=== PATIENT | female | born 1985 | race African-American/Black ===

== ENCOUNTER 2025-04-22 04:49 | Emergency (ER) | payer MEDICAID ==
[~2025-04-22] VITALS: Ht 162.6 cm; Wt 77.0 kg
[2025-04-22 05:07] VITALS: O2SAT 100
[2025-04-22] MEDS: KETOROLAC 30MG/ML VIAL IM ONE (05:40)
[2025-04-22] MEDS: CYCLOBENZAPRINE 10MG TABLET PO ONE (05:40)
[2025-04-22] MEDS ORDERED: NAPR-1176 MT (05:43)
[2025-04-22] MEDS ORDERED: CYCL10TA21 MT (05:43)
[2025-04-22 06:08] VITALS: BP 123/83; PULSE 69; RESP 16; TEMP 37; O2SAT 100
== END 2025-04-22 06:10 | disposition home or self-care (01) ==
LOC: ER 04:49
DX: S20.229A Contusion of unspecified back wall of thorax, initial encounter (principal); G80.9 Cerebral palsy, unspecified; Z79.899 Other long term (current) drug therapy; X58.XXXA Exposure to other specified factors, initial encounter; Y93.89 Activity, other specified; Y92.89 Other specified places as the place of occurrence of the external cause; Y99.8 Other external cause status
CPT/HCPCS: 99285; 72128; 81025; 72131; 96372; J1885

== ENCOUNTER 2025-04-22 11:03 | Emergency (ER) | payer MEDICAID, OTHER ==
[~2025-04-22] VITALS: Ht 162.6 cm; Wt 77.0 kg
[~2025-04-22 11:03] MED LIST: CYCL10TA21 MT; NAPR-1176 MT
[2025-04-22 11:18] VITALS: O2SAT 99
[2025-04-22 12:57] VITALS: BP 138/60; PULSE 64; RESP 14; TEMP 37; O2SAT 100
== END 2025-04-22 13:00 | disposition home or self-care (01) ==
LOC: ER 11:03
DX: Z02.1 Encounter for pre-employment examination (principal); M54.9 Dorsalgia, unspecified; G80.9 Cerebral palsy, unspecified
CPT/HCPCS: 99282

== ENCOUNTER 2025-05-07 02:08 | Emergency (ER) | payer OTHER ==
[~2025-05-07] VITALS: Ht 162.6 cm; Wt 78.0 kg
[2025-05-07 02:20] VITALS: O2SAT 100
[2025-05-07 03:38] VITALS: BP 128/100; PULSE 105; RESP 18; TEMP 36.9; O2SAT 100
== END 2025-05-07 03:43 | disposition home or self-care (01) ==
LOC: ER 02:58
DX: Z00.8 Encounter for other general examination (principal)
CPT/HCPCS: 99282